=== PATIENT | male | born 1975 | race Caucasian/White ===

== ENCOUNTER 2020-08-26 10:25 | Emergency (ER) | payer OTHER ==
[~2020-08-26] VITALS: Ht 175.3 cm; Wt 84.7 kg
[2020-08-26] MEDS ORDERED: KEN0.1O TP (12:00)
[2020-08-26 12:15] VITALS: BP 142/67
== END 2020-08-26 12:16 | disposition home or self-care (01) ==
LOC: ER 10:25
DX: R21 Rash and other nonspecific skin eruption (principal); R06.02 Shortness of breath; Z79.899 Other long term (current) drug therapy
CPT/HCPCS: 99283